=== PATIENT | female | born 1965 | race Caucasian/White ===

== ENCOUNTER 2021-07-18 10:26 | Outpatient (REF) | payer MEDICAID, SELFPAY ==
--- NOTE | 2021-07-18 16:27 | MHC.AU.ANR ---
Adult Audiological Evaluation Date of Visit: 07/18/21 Reason for Appointment: Patient was seen today for a hearing aid evaluation. Medical clearance for binaural hearing aid use was provided by ENT Dr. Blanco from 06/28/21. However, audiogram provided was from 12/27/20 and patient stated that they did not do a repeat audiogram at her most recent visit. Per [facility] requirements for obtaining hearing aids, both medical clearance and audiogram must be within six months of obtaining hearing aids. A pure tone check was performed today. Patient reports a significant history of middle-ear problems throughout her life, but has decided against surgical intervention. She has perforated eardrums bilaterally. She also noted that Dr. Blanco recommended she obtain swim plugs through our clinic. She notes that she recently had a cyst removed from her left ear. Does patient feel they have a hearing loss?: Yes If Yes, Which Ear?: Both Ears When Was Hearing Difficulty First Noticed?: many years ago Has hearing been tested previously?: Yes Previous Hearing Test Results: [facility] of [facility], 12/27/2020- Mild sensorineural hearing loss in the right ear. Severe to profound mixed hearing loss in the left ear. Hearing Handicap Inventory: HHIE SCORE: 40 Based on HHIE score, patient has: Severe perceived hearing handicap Ear History: Family History of Hearing Loss?: Yes: Father Ear Infections in Childhood: Both ears, very frequently Medical History: Medical History: Headache, Heart Problems, Seizure Disorder, Stroke Allergies: Ativan, contrast dye, codeine, demerac, penicillin Medication List: Aspirin, losartan, metoprolol, topiramate, atorvastatin, phenytoin Otoscopy: Right Ear: Perforation visualized. Clear canal Left Ear: Clear canal Tympanometry: Tympanometry performed due to: Right Ear: Not performed at today's visit Left Ear: Not performed at today's visit Hearing Evaluation: Transducer(s) Used: Insert Earphones, Bone Conduction Method: Conventional Audiometry Stimuli Used: Pure Tones Right Ear: Description of Hearing: Moderate mixed hearing loss from 250-500 Hz, rising to mild sensorineural hearing loss from 9668-2152 Hz, sloping to moderate mixed loss at 4000 Hz, and rising to a mild loss at 8000 Hz. Left Ear: Description of Hearing: Severe mixed hearing loss from 250-1000 Hz, rising to moderately-severe mixed hearing loss from 4254-9186 Hz. Speech Recognition Threshold (SRT): Method Used: Not performed at today's visit. Word Discrimination: Method: Not performed at today's visit. Comparison: Compared to the most recent evaluation: In the right ear, thresholds have worsened by 30 dBHL at 250 Hz, 20 dBHL at 500 Hz, 10 dBHL at 4000 Hz, and 15 dBHL at 8000 Hz. In the left ear, thresholds have improved by 25+ dBHL at 250 Hz, 30 dBHL at 500 Hz, 10 dBHL at 1000 and 8000 Hz, 15 dBHL at 2000 Hz, and 20 dBHL at 4000 Hz. Recommendations: Audiological re-evaluation in one year. See Hearing Aid Evaluation report for more information. Earmolds impressions were taken for swim plugs and hearing aid earmolds. Hearing aids ordered today. Diagnosis: Primary Diagnosis: H90.6 Mixed Hearing Loss, Bilateral Services Performed: Services Performed: Pure Tone- Air & Bone (CPT 34177) Signature: Provider: Cristina Allen, CCC-A
--- NOTE | 2021-07-18 16:28 | MHC.AU.HAS ---
Hearing Aid Evaluation Date of Visit: 07/18/21 Historical Information: Description of Hearing: Mild to moderate mixed hearing loss in the right ear. Moderately-severe to severe mixed hearing loss in the left ear. Current personal amplification information, if applicable: None Summary: Patient was referred to our clinic for a hearing aid evaluation by ENT Dr. Blanco, who provided medical clearance for binaural amplification from 06/28/2021. Hearing test provided was from 12/27/20, so a pure tone check was completed today in order to be in compliance with [facility] requirements for obtaining hearing aids. Discussed hearing aid options. Patient is concerned about the size of the hearing aids. Advised the LORRAINE aids are the most inconspicuous and she was agreeable to that. Would prefer rechargeable hearing aids, as she feels she is forgetful and needs a consistent routine. Recommend custom LORRAINE molds based on degree of hearing loss. Patient states that Dr. Blanco also recommended swim plugs to be used in the shower due to perforations in both TMs. Took two sets of earmold impressions, or swim plugs and for custom LORRAINE molds. Hearing Aid Prescription: Based on the individual?s shared listening needs, communication environments, dexterity, desire for connectivity, and personal preferences, the following prescription for amplification has been made: Right ear: Horn Player: [employer] Model: Audeo P70-R Battery Size: Rechargeable Color: P1- Sand beige Conversion Developer: Size 0 M Type of Mold: cShell Left ear: Left ear prescription to be same as Right Hearing Aid above: Horn Player: Phonak Model: Audeo P70-R Battery Size: Rechargeable Color: P1 - Sand beige Conversion Developer: Size 0 P Type of Mold: cShell Plan of Care: Requesting an order for swim plugs from Dr. Blanco and swim plugs will be ordered when that is received. Hearing aids were ordered today. Primary Diagnosis: H90.6 Mixed Hearing Loss, Bilateral Signature: Provider: Cristina Allen, [facility]
== END 2021-07-18 10:27 | disposition home or self-care (01) ==
LOC: HO.HAP 10:26
PROVIDERS: Visit Provider Internal Medicine
DX: Z46.1 Encounter for fitting and adjustment of hearing aid (principal); H90.6 Mixed conductive and sensorineural hearing loss, bilateral
CPT/HCPCS: 92553; 92591; V5275

== ENCOUNTER 2021-07-29 15:04 | Outpatient (REF) | payer MEDICAID, SELFPAY ==
--- NOTE | 2021-07-29 16:32 | MHC.AU.HFA ---
Hearing Instrument Fitting- Adult- Binaural Date of Visit: 07/29/21 Hearing Instruments Dispensed: Right Ear: Tack Welder: Phonak Model: Audeo P70-R Serial Number: [id number] Repair Warranty: 10/22/2024 Loss and Damage Warranty: 10/22/2024 Battery Size: Rechargeable Color: P1- Sand beige Gear Straightener: Size 0 M Type of Mold: cShell, SN: [id number], Warranty: 10/24/2021 Type of Wax Guard: Cerustop Left Ear: Tack Welder: Phonak Model: Audeo P70-R Serial Number: [id number] Repair Warranty: 10/22/2024 Loss and Damage Warranty: 10/22/2024 Battery Size: Rechargeable Color: P1 - Sand beige Gear Straightener: Size 0 P Type of Mold: cShell, SN: [id number], Warranty: 10/24/2021 Type of Wax Guard: Cerustop Summary of Fitting: Patient was seen today for a binaural hearing aid fitting. She is a new hearing aid user. Hearing aids were programmed to her hearing loss and feedback measures were run. Real-ear verification was run at 100% gain and adjustments were made to better match targets. She noted that the hearing aids were overall too loud, so turned down to 80% gain and turned on occlusion compensation to medium. She reported improved sound quality and comfortable fit. Counseled on proper care and use, including insertion/removal, cleaning, health insurance specialist use, wax guard changing, etc. Programmed hearing aids to the Qraved parveen on her phone and reviewed use. She is not interested in streaming capabilities at this time. Recommendations: Hearing Instrument maintenance in 6 months, or sooner if needed. Please call our clinic with any questions or concerns. Hearing aid follow-up will be scheduled once swim molds are in. Signature: Provider: Cristina Allen, BECKY-A
== END 2021-07-29 15:05 | disposition home or self-care (01) ==
LOC: HO.HAP 15:04
PROVIDERS: Visit Provider Internal Medicine
DX: Z46.1 Encounter for fitting and adjustment of hearing aid (principal); H90.6 Mixed conductive and sensorineural hearing loss, bilateral
CPT/HCPCS: V5011; V5020; V5160; V5261; V5264

== ENCOUNTER 2021-08-26 13:19 | Outpatient (REF) | payer MEDICAID, SELFPAY ==
--- NOTE | 2021-09-01 11:36 | MHC.AU.HFU ---
Hearing Instrument Follow-Up- Binaural Date of Visit: 08/26/21 Right Ear: Material Mover: Phonak Model: Audeo P70-R Serial Number: [id number] Repair Warranty: 10/22/2024 Type of Mold: cShell SN: [id number] Warranty: 10/24/2021 Type of Wax Guard: Cerustop Left Ear: Material Mover: Phonak Model: Audeo P70-R Serial Number: [id number] Repair Warranty: 10/22/2024 Type of Mold: cShell SN: [id number] Warranty: 10/24/2021 Type of Wax Guard: Cerustop Follow-Up Summary: Patient arrived for hearing aid follow-up and to fit her new swim molds. The left swim mold fits well, but the right swim mold is too loose. A new impression was taken of the right ear and sent to [facility] along with the right swim mold. Patient reports the cShells on both hearing aids have been sliding out and causing feedback. She also feels she is ready to turn the target gain up to 100% (it was at 80%). New impressions were taken of both ears and sent to [email or web address] along with the cShells. For now, medium power domes were placed on power receivers. Hearing aid acoustics were reprogrammed to reflect the domes. When the cShells return, we will need to set the hearing aids back to their last settings (from before today's appointment), then turn the gain up to 100%. Recommendations: Patient will be contacted when the remade swim mold arrives and the remade cShells (whichever comes first, will call patient as it comes in). Diagnosis Code(s): Primary Diagnosis: H90.6 Mixed Hearing Loss, Bilateral Signature: Provider: Cristina Flynn, [facility]
== END 2021-08-26 13:20 | disposition home or self-care (01) ==
LOC: HO.HAP 13:19
PROVIDERS: Visit Provider Internal Medicine
DX: Z46.1 Encounter for fitting and adjustment of hearing aid (principal); H90.6 Mixed conductive and sensorineural hearing loss, bilateral
CPT/HCPCS: V5264

== ENCOUNTER 2021-09-26 14:23 | Outpatient (REF) | payer MEDICAID, SELFPAY ==
--- NOTE | 2021-09-28 08:01 | MHC.AU.HFU ---
Hearing Instrument Follow-Up- Binaural Date of Visit: 09/26/21 Right Ear: Cans Vacuum Tester: Phonak Model: Audeo P70-R Serial Number: [id number] Repair Warranty: 10/22/2024 Loss and Damage Warranty: 10/22/2024 Type of Mold: cShell, SN: [id number], Warranty: 10/24/2021 Type of Wax Guard: Cerustop Left Ear: Cans Vacuum Tester: Phonak Model: Audeo P70-R Serial Number: [id number] Repair Warranty: 10/22/2024 Loss and Damage Warranty: 10/22/2024 Type of Mold: cShell, SN: [id number], Warranty: 10/24/2021 Type of Wax Guard: Cerustop Follow-Up Summary: Patient arrived to pick out hand the remade cShells and the remade right swim mold. The cShells were placed back on her hearing aids. Programming was reverted to the last setting where the cShells were in use, and target gain raised to 100%. Feedback manager club re-run. Patient was pleased with the sound of the instruments. So far, she feels the cShells feel better. She will let us know if problems persist as she has been wearing them for longer. Patient reports that she has tried using the left swim mold at home, and she is getting water in her ear. The right remake also still feels loose. New impressions taken bilaterally and will be sent to [employer] for remake. Patient also requested the color changed to beige. Recommendations: Patient will be contacted when the remade swim molds are in. Diagnosis Code(s): Primary Diagnosis: H90.6 Mixed Hearing Loss, Bilateral Signature: Provider: Cristina Flynn, [facility]
== END 2021-09-26 14:24 | disposition home or self-care (01) ==
LOC: HO.HAP 14:23
PROVIDERS: Visit Provider Otolaryngology
DX: Z46.1 Encounter for fitting and adjustment of hearing aid (principal); H90.6 Mixed conductive and sensorineural hearing loss, bilateral
CPT/HCPCS: V5275

== ENCOUNTER 2021-10-28 13:44 | Outpatient (REF) | payer MEDICAID, SELFPAY | END 2021-10-28 13:45 | disposition home or self-care (01) | LOC: HO.HAP 13:44 | PROVIDERS: Visit Provider Otolaryngology | DX: Z46.1 Encounter for fitting and adjustment of hearing aid (principal); H90.6 Mixed conductive and sensorineural hearing loss, bilateral | CPT/HCPCS: V5264 ==

== ENCOUNTER 2024-03-07 10:27 | Outpatient (REF) | payer MEDICAID, SELFPAY ==
--- NOTE | 2024-03-07 15:26 | MHC.AU.HA3 ---
Hearing Instrument Follow-Up- Binaural Date of Visit: 03/07/24 Flare Man Used: Right Ear: Make, Model, Color, Serial Number: [id number] Executive Creative Director Repair Warranty: 10/22/2024 Executive Creative Director Loss and Damage Warranty: 10/22/2024 [facility] Service Plan: Battery Size: Rechargeable Group Leader/Slim Tube: Size 0 M Earmold/Dome/CShell/SlimTip:cShell SN: [id number] Warranty: 10/24/2021 Type of Wax Guard: Cerustop Dispensed By: Date of Fitting: Left Ear: Make, Model, Color, Serial Number: [id number] Executive Creative Director Repair Warranty: 10/22/2024 Executive Creative Director Loss and Damage Warranty: 10/22/2024 [facility] Service Plan: Battery Size: Rechargeable Group Leader/Slim Tube: Size 0 P Earmold/Dome/CShell/SlimTip: cShell SN: [id number] Warranty: 10/24/2021 Type of Wax Guard: Cerustop Dispensed By: Date of Fitting: Follow-Up Summary: Patient dropped off hearing aids, was scheduled for [facility] appt but provider was out sick. Note says need them to shut off at office so I can control them. they keep ringing too loud . Contacted patient for more info- says she uses the parveen to turn them down because she finds them too loud, but they go back to our settings every morning. Recalls being told she can come in to have them shut off from our end so she is in total control of them. Also states they ring. Notes she had a sudden hearing loss recently, is seeing ENT in [place] for further testing. Explained to patient that she will never be able to make permanent changes to settings from parveen, recommend coming in for appt so we can make changes to her baseline, rerun feedback food and beverage operations manager, and reprogram aids to newest audiogram. She did not feel she needed an appointment for these issues. Explained further, offered to decrease gain slightly while aids are here but that we can only make appropriate changes with her in office, with copy of newest audiogram. Patient agreeable, says she has one more test scheduled with ENT then will return. Aids cleaned, wax guards changed, mics cleaned, firmware updated, and decreased gain 2 clicks. Brought aids to front, pt will pickup same day. Recommendations: Recommendations (Other): Call office to schedule adjustment after upcoming hearing test. Diagnosis Code(s): Primary Diagnosis: H90.6 Mixed Hearing Loss, Bilateral Signature: Student/Clinical Fellow: I have reviewed/agreed with student/fellow documentation: Provider: Cristina Bosch, CCC-A
== END 2024-03-07 10:28 | disposition home or self-care (01) ==
LOC: HO.HAP 10:27
PROVIDERS: Visit Provider Internal Medicine
DX: Z46.1 Encounter for fitting and adjustment of hearing aid (principal); H90.6 Mixed conductive and sensorineural hearing loss, bilateral
CPT/HCPCS: 92593; 99499

== ENCOUNTER 2024-07-02 16:21 | Outpatient (REF) | payer MEDICAID, SELFPAY ==
--- NOTE | 2024-07-03 08:20 | MHC.AU.HA3 ---
Hearing Instrument Follow-Up- Binaural Date of Visit: 07/02/24 Right Ear: Anthony, Model, Color, Serial Number: [id number] Data Recovery Planner Repair Warranty: 10/22/2024 Data Recovery Planner Loss and Damage Warranty: 10/22/2024 [facility] Service Plan: 07/29/22 Battery Size: Rechargeable Optometric Technician/Slim Tube: Size 0 M Earmold/Dome/CShell/SlimTip:cShell SN: [id number] Warranty: 10/24/2021 Type of Wax Guard: Cerustop Dispensed By: [facility] Date of Fittin07/29/21 Left Ear: Anthony, Model, Color, Serial Number: [id number] Data Recovery Planner Repair Warranty: 10/22/2024 Data Recovery Planner Loss and Damage Warranty: 10/22/2024 [facility] Service Plan: 07/29/22 Battery Size: Rechargeable Optometric Technician/Slim Tube: Size 0 P Earmold/Dome/CShell/SlimTip: cShell SN: [id number] Warranty: 10/24/2021 Type of Wax Guard: Cerustop Dispensed By: [facility] Date of Fittin07/29/21 Follow-Up Summary: Luann is seen for hearing aid adjustment. She reports infrequent hearing aid use due to being bothered by all the excess noise and unable to hear what she wants to hear. Reports that when she has used the hearing aids recently they only last a couple hours. She has a recent audiogram from ENT in [place]. She reports Dr. Blanco recommended new swim plugs as the ones she has had never fit well. Recommended sending her hearing aids for repair due to battery drain. Will adjust hearing aids to most recent audiogram upon return. Took impressions for new swim plugs without incidence Au. She would like beige. She will contact Dr. Blanco to have order sent over for swim plugs. Impressions stored in hold drawer. Recommendations: Recommendations: Patient will be contacted when materials have arrived. Diagnosis Code(s): Primary Diagnosis: H90.A21 SNHL, Unilateral Right Ear, W/Restricted Contralateral Hearing Secondary Diagnosis: H90.A32 Mixed HL, Unilateral, Left Ear, W/Restricted Contralateral Signature: Provider: Fanny Granado, [facility]
== END 2024-07-02 16:22 | disposition home or self-care (01) ==
LOC: HO.HAP 16:21
PROVIDERS: Visit Provider Otolaryngology
DX: Z46.1 Encounter for fitting and adjustment of hearing aid (principal); H90.A21 Sensorineural hearing loss, unilateral, right ear, with restricted hearing on the contralateral side; H90.A32 Mixed conductive and sensorineural hearing loss, unilateral, left ear with restricted hearing on the contralateral side
CPT/HCPCS: 92593; V5275

== ENCOUNTER 2024-07-23 16:25 | Outpatient (REF) | payer MEDICAID, SELFPAY ==
--- OUTSIDE RECORDS SUMMARY | 2024-07-23 18:19 | XMS_ITS | Data Portability ---
Author Organization [place] - [facility], Allergy Address [address] [facility] 100 [place] [address] Care Team Providers Care General Machine Operator Name Role Phone HALIMA RODRIGUEZ Primary Care Provider [phone] Assessment Encounter Date Assessment Date Assessment LastModified by Organization Details LastModified Time 02/15/2024 02/15/2024 We discussed tanika t the patient has experienced a sudden right-sided sensorineural hearing loss. I explained that this is idiopathic but thought to be due to a virally-mediated inflammatory phenomenon. We discussed that our recommended treatment plan typically includes a two week high dose oral prednisone taper and a series of 3 intratympanic dexamethasone injections. Side effects of oral steroids were discussed, including GI upset, irritability, and sleep disturbance. We discussed the rare complication of aseptic necrosis of the hip. An information sheet regarding oral steroids was given to the patient for their review at home. A prescription for prednisone 60 mg per day followed by a five-day taper was sent to the pharmacy. She declined the injection on the right side. She also declined removal of left sided cerumen. In the meantime I will order MRI scan of the brain and internal auditory canals to rule out retrocochlear pathology as the cause of the sudden hearing loss. Repeat hearing testing in 6 weeks and followup with Dr Hamlin was offered [email or web address] Not available 02/15/2024 15:30:55 06/19/2024 06/19/2024 The left-sided deep retraction pocket is free of infection or inflammation today. Today I spoke with the patient and her coordinator mining products about the deep retraction pocket and how it is prone to accumulation of squamous debris and infection. Today we discussed the option of left-sided tympano-ossiculop lasty with mastoidectomy to excise the retraction pocket and reconstruct the ossicular chain. We discussed that this would be done via a postauricular approach. We discussed preoperative and perioperative expectations. We discussed the risks, benefits, and complications associated with this surgery including the risks of bleeding, infection, persistent tympanic membrane perforation, temporary or permanent facial nerve paralysis or paresis, cerebrospinal fluid leak, encephalocele, temporary or permanent tinnitus, temporary or permanent balance disturbance. We also discussed the possibility that the hearing may be significantly reduced postoperatively, which will most likely be temporary but may also be permanent. We discussed the possibility that the patient will require a second stage surgery in 8-10 months to rule out recurrent cholesteatoma as well as to perform ossicular chain reconstruction if needed. We discussed the fact that if there is a significant recurrence of cholesteatoma at the second stage surgery that further reoperations may be required. After full discussion, the patient would like to proceed with surgery. I have provided patient with the contact information for my certified surgical tech/first assistant. We will begin the scheduling process and see the patient back at the time of surgery. Patient will require medical clearance from their primary care provider preoperatively. [email or web address] Not available 06/19/2024 09:48:40 Plan of Treatment Reminders Order Date Submit Date Provider Last Modified By Organization Details Last Modified Time Details Appointments SURGERY 150 2024 01:30P M VICKIE HAMLIN MD Not available Not available Not available Post Op 2024 09:45A M RANDY PIMENTEL PA-C Not available Not available Not available Establish ed 10 2024 03:30P M VICKIE HAMLIN MD Not available Not available Not available Lab None recorded. Referral None recorded. Procedures None recorded. Surgeries tympanopl asty with mastoidec luigi, with intact or reconstru cted canal wall, with ossicular chain reconstru ction (SURG) 2024 025 [email or web address] Not available 06/19/2024 10:16:42 Imaging MRI, brain + internal auditory canal, w/wo contrast - MRI, BRAIN + INTERNAL AUDITORY CANAL, W/WO CONTRAST 2024 025 [facility] ([facility]), [address] [facility] [address], [place], [address], 02/26/2024 10:04:32 Medication Orders tobramyci n 0.3 %-dexamet hasone 0.1 % eye drops,brandy pension 2024 025 [facility], [address] [place] [address], [id number], 06/19/2024 09:11:49 prednison e 10 mg tablet 2024 025 [facility], [address] [place] [address], [id number], 04/10/2024 14:41:03 Patient TargetsNo targets recorded. Patient InstructionsNo instructions recorded. Reason for Referral None Reported. Results Created Date Observation Date Name Description Value Unit Range Abnormal Flag Note LastModifiedBy Organization Detail LastModifiedTime 02/17/19 audio gram No observ ation record ed. BARCODE Not Available 2024 09:32:46 02/25/19 25 02/23/2024 MRI, brain + brain stem, w/wo contr ast [facility] Access ion Number : [id number] Patiisabela t Name: Luann Childs Record Number : [id number] Date of : 1965 Date of Exam: 2024 Referr ing Physic lita: Fawad Orozco [facility] [address] [place] [address] Exam: MR Brain (C-/C+ ) CPT 25704 Room Descri ption: Glorieta GE Pion 3T MR Brain (C-/C+ ) CPT 83769 INDICA TION / CLINIC AL QUESTI ON: H90.6 - Mixed conduc tive and sensor ineura l hearin g loss, bilate ral, Clinic al Indica tion: Asymme tric sensor ineura l hearin g loss TECHNI QUE: Multip lanar, multis equenc e MRI of the brain was perfor med with and withou t intrav enous contra st. 18 mL Dotare m intrav enous contra st was admini stered . COMPAR SHEEBA: None. FINDIN GS: IAC: There is no mass or abnorm al enhanc ement in the architect internship al audito ry canals or cerebe llopon song angles . Course and calibe r of the 7th and 8th crania l nerves is normal bilate rally. Fluid signal is preser nereyda in the inner ear struct ures bilate rally. Brains tem demons trates normal signal . BRAIN and EXTRA- AXIAL SPACES : Modera te patchy T2 prolon gation is seen in the perive ntricu lar, deep, and subcor tical white matter , a nonspe cific findin g most common ly reflec ting chroni c small vessel diseas e in this demogr aphic. Otherw ise no signif icant abnorm ality of the visual ized portio ns of the brain and extra- axial spaces . EXTRAC RANIAL SOFT TISSUE S: Left mastoi d effusi on is presen t. Conten ts are mildly T1 hyperi ntense , sugges ting protei naceou s materi al, with no percep tible superi mposed enhanc ement. Nasoph arynge al contou r is symmet sahara. Remain ing visual ized portio ns of the extrac ranial soft tissue s are unrema rkable . BONES: Visual ized marrow signal is preser nereyda. IMPRES FLAVIO: 1. No retroc ochlea r abnorm ality to explai n the patien t?s sympto ms. 2. Left mastoi d effusi on. Electr onical ly Signed By: Grant Peng MD [facility] ([facility]) [address] [facility], [place], [address], 02/27/2024 15:11:28 04/11/19 25 audio gram No observ ation record ed. BARCODE Not Available 2024 10:48:47 Result Notes None recorded. Problems Name Problem SNOMED Code Status Onset Date Resolution Date Notes Provider Name and Address Organization Details Recorded Time Disorder of left Eustachi an tube 17169722297 79180 Active 2020 Other specifie d disorder s of Eustachi an tube, left ear; Note: Date Diagnose d: 12/28/19 21 3:50 PM (H69.82) Not Available [facility] 4 02:20:15 Marginal perforat ion of tympanic membrane 94812511 Active 2021 Other marginal perforat ions of tympanic membrane , right ear; Note: Date Diagnose d: 09/18/2019 6:51 PM (H72.2X1 ) ; Start Date : 09/18/19 Other marginal perforat ions of tympanic membrane , bilatera l; Note: Date Diagnose d: 05/20/2021 8:12 AM (H72.2X3 ) Not Available [facility] 4 02:19:51 Partial loss of ear ossicles 56529695 Active 2021 Partial loss of ear ossicles , left ear; Note: Date Diagnose d: 05/20/2021 8:10 AM (H74.322 ) Not Available [facility] 4 02:19:34 Otorrhea of left ear [id number] 11399 Completed 201909/14/2023 Otorrhea , left ear; Note: Date Diagnose d: 0 9:14 AM (H92.12) VICKIE HAMLIN MD [address] [place] [address], [facility] [place], [address] [facility] 5 15:05:07 Sensorin eural hearing loss in right ear 85826474587 100 Active 2020 Sensorin eural hearing loss, unilater al, right ear, with restrict ed hearing on the contrala teral side; Note: Date Diagnose d: 12/28/19 21 2:32 PM (H90.A21 ) Not Available [facility] 4 02:19:58 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; Note: Date Diagnose d: 2 10:42 AM (H74.12) Not Available [facility] 4 02:19:33 Mixed conducti ve and sensorin eural hearing loss of left ear 62116445879 107 Active 2020 Mixed conducti ve and sensorin eural hearing loss, unilater al, left ear with restrict ed hearing on the contrala teral side; Note: Date Diagnose d: 12/28/19 21 2:32 PM (H90.A32 ) Not Available [facility] 4 02:18:54 Mixed conducti ve and sensorin eural hearing loss, vivien l 641284457 Active [address] FLOWER [address] [place] [address],[place] [address], [place], [address] , [facility] - [facility] 5 15:08:11 Adhesive middle ear disease 7353612 Active 2024 VICKIE HAMLIN MD [address] [place] [address],[place] [address], [place], [address] , [facility] - [facility] 5 20:32:38 Otorrhea of left ear 31353705544 53672 Active 2024 Otorrhea , left ear; Note: Date Diagnose d: 0 9:14 AM (H92.12) VICKIE HAMLIN MD [address] [place] [address],[place] [address], [place], [address] , [facility] 5 15:05:07 Problem Notes None recorded. Procedures Surgical History Date Name Laterality Status Provider Name and Address Organization Details Recorded Time 5 Air & Speech Audio with Tymps - 76720, 49862 & 02490 completed JOSE FLOWER [address] [place] [address], [place], [address], [facility] 04/10/2024 14:31:41 5 Debridement of Ear canal left completed VICKIE HAMLIN MD [address] [place] [address], [address], [facility] 04/10/2024 15:15:22 5 Comp Audio with Tymps - 10067 & 89711 completed JOSE FLOWER [address] [place] [address], [address], [facility] 02/15/2024 15:07:13 Imaging Results None recorded. Procedure Notes None recorded. Medical Equipment None Reported. Allergies Allergen ID Allergen Name Allergen Category Reaction Reaction Severity Criticality Documentation Date Start Date Code Code System Note Provider Name and Address Organization Details Recorded Time [facility] Not available Not available 06/26/2023 60663 1 RxNorm React ion: unkno wn, unspe cifie d;; Not Available [facility] 4 00:48:24 60449 Ativan medicatio n other Not available Not available 06/26/2023 83819 9 RxNorm React ion: unkno wn, unspe cifie d;; Not Available [facility] 4 00:48:24 52668 Iodinated contrast media (substanc e) medicatio n other Not available Not available 06/26/2023 17089 2003 SNOMED React ion: unkno wn, unspe cifie d;; Not Available [facility] 4 00:48:33 85745 penicilli n V potassium medicatio n other Not available Not available 06/26/2023 96735 5 RxNorm React ion: unkno wn, unspe cifie d;; Not Available [facility] 4 00:48:39 51540 codeine sulfate medicatio n other Not available Not available 06/26/2023 79560 RxNorm React ion: unkno wn, unspe cifie d;; Not Available [facility] 4 00:48:44 Medications Name Sig Start Date Stop Date Status Note LastModified by Organization Details LastModified Time losartan 50 mg tablet TAKE 1 TABLET BY MOUTH ONCE DAILY active Not Available Not Available No t Available atorvasta tin 80 mg tablet TAKE 1 TABLET BY MOUTH AT BEDTIME active Not Available Not Available No t Available prednison e 10 mg tablet Take 6 tabs once a day for 9 days, then take 5 tabs on day 10, 4 tabs on day 11, 3 tabs on day 12, 2 tabs on day 13, and 1 tab on day 14 04/10 completed Not Available Not Available Not Available meloxicam 15 mg tablet TAKE 1 TABLET BY MOUTH ONCE DAILY NEEDED WITH FOOD FOR BACK PAIN 06/19 completed Not Available Not Available Not Available topiramat e 25 mg tablet TAKE 1 TABLET BY MOUTH ONCE DAILY . APPOINTM ENT REQUIRED FOR FUTURE REFILLS active Not Available Not Available No t Available aspirin 81 mg tablet,de layed release TAKE 1 TABLET BY MOUTH ONCE DAILY active Not Available Not Available No t Available amitripty line 10 mg tablet TAKE 1 TO 2 TABLETS BY MOUTH EVERY DAY AT BEDTIME NEEDED FOR MIGRAINE HEADACHE active Not Available Not Available No t Available nystatin 100,000 unit/gram topical cream APPLY CREAM TOPICALL Y THREE TIMES DAILY 04/10 completed Not Available Not Available Not Available losartan 25 mg tablet 04/10 completed Medicati on ID: [id number] D uration Value: 90 Brand Name: losartan Send Method: E-Prescr ibed Sub s Allowed: subs OK Speci al Instruct ion: TAKE 1 TABLET BY MOUTH ONCE DAILY Me dication GenericN cayetano: losartan Not Available Not Available Not Available omeprazol e 20 mg capsule,d elayed release 04/10 completed Medicati on ID: [id number] D uration Value: 30 Brand Name: omeprazo le Send Method: E-Prescr ibed Sub s Allowed: subs OK Speci al Instruct ion: TAKE 1 CAPSULE BY MOUTH ONCE DAILY 30 MINUTES BEFORE BREAKFAS T FOR 30 DAYS Med icationG enericNa me: omeprazo le Not Available Not Available Not Available gabapenti n 100 mg capsule TAKE 1 CAPSULE BY MOUTH THREE TIMES DAILY FOR 7 DAYS active Not Available Not Available No t Available metoprolo l succinate ER 25 mg tablet,ex tended release 24 hr TAKE 1 TABLET BY MOUTH ONCE DAILY 04/10 completed Not Available Not Available Not Available ergocalci ferol (vitamin D2) 1,250 mcg (50,000 unit) capsule TAKE 1 CAPSULE BY MOUTH ONCE A WEEK DIRECTED active Not Available Not Available No t Available tobramyci n 0.3 %-dexamet hasone 0.1 % eye drops,brandy pension INSTILL 4 DROPS INTO AFFECTED EAR(S) BY OTIC ROUTE 2 TIMES PER DAY FOR 10 DAYS 06/19 completed Not Available Not Available Not Available ProAir HFA 90 mcg/actua tion aerosol inhaler 06/19 completed Medicati on ID: [id number] D uration Value: 17 Brand Name: ProAir HFA Send Method: E-Prescr ibed Sub s Allowed: subs OK Speci al Instruct ion: INHALE 2 PUFFS BY MOUTH EVERY 4 TO 6 HOURS NEEDED FOR COUGH AND WHE EZING Me dication GenericN cayetano: ProAir HFA Not Available Not Available Not Available Vitals Date Recorded Body height Body weight Provider Name and Address Organization Details Last Updated DateTime 06/19/2024 149.86 cm 99810.92 g Cuca Delatorre [place] - [facility] 06/19/2024 09:45:34 Social History None recorded. Functional Status None recorded. Mental Status None recorded. Family History Nothing Reported. Medical History Condition Response Allergies/Hayfever N Heart Problems Y Anxiety Y Tonsil Infections N Emphysema N Migraines Y Thyroid Problems N Glaucoma N Depression N COPD N Developmental Delay N Nasal or Sinus Problems N Anemia N Immune System Disorder N Anesthesia Complications N Heart Attack (DC) Y Other Skin Condition N Diabetes N Rhinitis N Bleeding Disorder N Food Allergy N Arthritis Y Hearing Loss Y Hyperlipidemia N Cancer N Stroke N Dementia N Nasal polyps N Asthma N High Cholesterol N Sleep Disorder N GERD/Reflux N Liver Disease N Headaches Y Fibromyalgia N Hypertension N Speech Delay N Kidney Disease N Gynecological HistoryNo gynecological history recorded. Obstetrics History GPAL:G 0 P 0 0 0 0 Past Encounters Encounter ID Performer Location Encounter Start Date Encounter Closed Date Diagnosis/Indication Diagnosis SNOMED-CT Code Diagnosis ICD10 Code Diagnosis Note [id number] FAWAD OROZCO MD [facility] [address] [address] 02/15/2024 13:54:12 02/15/2024 15:34:16 Mixed conductive and sensorineural hearing loss, bilateral 309845936 H90.6 Audiologic al evaluation results: Right ear: Mild sloping to profound mixed hearing loss with excellent word recognitio n. Left ear: Severe sloping to profound mixed hearing loss with excellent word recognitio n. Tympanomet ry: Right Ear:Type A Left Ear:Type B [id number] VICKIE HAMLIN MD [facility] [address] [address] 04/10/2024 13:56:07 04/10/2024 15:18:14 Adhesive middle ear disease 7774522 H74.12 Otorrhea of left ear 288 6352420 288615 H92.12 The left retraction pocket was impacted with wet squamous debris, which was carefully debrided today under the binocular microscope . There is wet squamous debris here as well as signs of chronic inflammati on. Recommend 2 weeks of topical TobraDex drops to be used twice a day. Dry ear precaution s should continue. I will see her back in 2 months for reevaluati on to assess for signs of cholesteat aletha. Patient is extremely fearful of having her ear cleaned and as such, we may want to consider proceeding with surgery on this ear to normalize the position of the drum and remove the retraction pocket and proceed with ossicular chain reconstruc tion to help with the hearing. Mixed cond uctive and sensorineural hearing loss of left ear 1539021814 9107 H90.A32 Audiologic al evaluation results: Right ear:Mild sloping to profound sensorineu ral hearing loss with excellent word recognitio n.Left ear:Modera tely-sever e hearing he aring. slo ping to a mild slopi ng to a moderate s loping to moderately severe slo ping to severe slo ping to profound f lat high frequency low frequency mid frequency cookie bite wolf curve to profound mixed hearing loss. Tympanomet ry:Right Ear:Type ALeft Ear:Type BPatient continues to demonstrat e a new right sided high-frequ ency sensorineu ral hearing loss related to her recent sudden hearing loss.Patie nt given copy of audiogram to bring back to her audiologis t to ensure her hearing aids are adjusted to match her current level of hearing loss. Sensorineu ral hearing loss in right ear [id number] 9100 H90.A21 [id number] VICKIE AHMLIN MD [facility] [address] [address] 06/19/2024 09:03:41 06/19/2024 09:47:18 Adhesive middle ear disease 2082356 H74.12 Mixed cond uctive and sensorineural hearing loss of left ear 1597217771 9107 H90.A32 Sensorineu ral hearing loss in right ear 9113937214 9100 H90.A21 Partial lo ss of ear ossicles 71375953 H74.322 Health Concerns Section Related Observation LastModified by Organization Detai ls LastModified Time None Recorded Concern Status LastModified by Organization Details LastModified Time None Recorded Advance Directives Directive None Recorded Payers Insurance Date Sequence Insurance Name Policy Number Policy Monge Covered Member ID Monge Member ID Guarantor Name 06/16/2024 1 [place] [facility] Luann Childs [id number] Luann Childs Notes Date Note Type Note Provider Name and Address Organization Details Recorded Time 02/15/2024 text/html hearing loss RIG HT sidedassociated with tinnitus and headacheonset 02/03/24has hearing aids but not using them - appreciates echoseen at [employer] and advised to use claritinno prior acute hearing loss event PV 06/28/21 Francis - reviewed operative findings from [facility] 05/20/21 - not interested in surgery, given medical clearance for B HAEAD: large area of dimeric tympanic membrane in the posterior superior quadrant with a pinpoint perforation along the margin. No signs of retractionor cholesteatoma.: Deep retraction pocket of the entire posterior half of the tympanic membrane which is adherent to the promontory with a marginal perf in the post/infquadrant. The long process of the incus absent. The stapes superstructure is missing in the drum is adherent to the footplate. Retraction extends underneath thescutum, but there does not appear to be debris collection within the epitympanum FAWAD OROZCO MD [address] [place] [address], [place], [address], [place] - [facility] 02/15/2024 15:31:15 04/10/2024 text/html Patient with his tory of left eustachian tube dysfunction resulting in LEFT deep retraction pocket. She underwent left ear examination under anesthesia back in early 2021 and the retraction pocket was noted to be limited to the middle ear, without signs of cholesteatoma formation. There was erosion of the incus with myringostapediopexy. CT showed very sclerotic left mastoid. I did recommend continued observation to assess for formation of cholesteatoma.Patient experienced a sudden RIGHT sided sensorineural hearing loss. Patient given high-dose oral steroid regimen. Patient declined intratympanic injections. MRI scan performed which showed no signs of retrocochlear pathology. Left mastoid effusion noted. Patient returns today for audiometric testing to assess response to prednisone. Patient does have binaural amplification dispensed through [facility] audiology. VICKIE HAMLIN MD [address] [place] [address] [address], [place], [address], [facility] - [facility] 04/10/2024 15:17:17 06/19/2024 text/html Patient with his tory of left eustachian tube dysfunction resulting in LEFT deep retraction pocket. She underwent left ear examination under anesthesia back in early 2021 and the retraction pocket was noted to be limited to the middle ear, without signs of cholesteatoma formation. There was erosion of the incus with myringostapediopexy. CT showed very sclerotic left mastoid. I did recommend continued observation to assess for formation of cholesteatoma, though we have recently discussed proceeding with surgery to favian the retraction pocket in light of her extreme fear of having her ear cleaned manually. Last seen 2 months ago at which point she had purulent discharge arising from the LEFT retraction Patient experienced a sudden RIGHT sided sensorineural hearing loss. Patient given high-dose oral steroid regimen. Patient declined intratympanic injections. MRI scan performed which showed no signs of retrocochlear pathology. Patient does have binaural amplification dispensed through [facility], and she was given a copy of her audiogram at her last visit to bring to her investigator operator to have her hearing aid adjusted appropriately. VICKIE HAMLIN MD [address] [facility] [address], [place], [address], [facility] - [facility] 06/19/2024 09:49:20 OBGyn Episode No OBEpisode recorded.
--- NOTE | 2024-07-24 08:08 | MHC.AU.HA3 ---
Hearing Instrument Follow-Up- Binaural Date of Visit: 07/23/24 Right Ear: Anthony, Model, Color, Serial Number: [id number] Phonshagufta Díazeo P-70R Sand Beige Biological Photographer Repair Warranty: 10/22/2024 Biological Photographer Loss and Damage Warranty: 10/22/2024 [facility] Service Plan: exp Battery Size: Rechargeable Lead Technologist In Cytogenetics/Slim Tube: Size 0 M Earmold/Dome/CShell/SlimTip:cShell SN: [id number] Warranty: 10/24/2021 Type of Wax Guard: Cerustop Left Ear: Anthony, Model, Color, Serial Number: [id number] Phonshagufta Díazeo P-70R Sand Beige Biological Photographer Repair Warranty: 10/22/2024 Biological Photographer Loss and Damage Warranty: 10/22/2024 [facility] Service Plan: exp Battery Size: Rechargeable Lead Technologist In Cytogenetics/Slim Tube: Size 0 P Earmold/Dome/CShell/SlimTip: cShell SN: [id number] Warranty: 10/24/2021 Type of Wax Guard: Cerustop Follow-Up Summary: Dispensed repaired hearing aids. Programmed to most recent audiogram from ENT. Ran feedback. Counseled on adjustment to amplification and importance of consistent wear as Luann as reported intermittent hearing aid use in the past. Impressions are still in hold drawer waiting for order from Dr. Blanco for swim plugs. Luann noted upcoming surgery with Dr. Blanco, advised hearing aid adjustment will be needed if surgery leads to any changes in hearing thresholds and to contact us for that as needed. Recommendations: Recommendations: Hearing instrument follow-up or maintenance as needed. Diagnosis Code(s): Primary Diagnosis: H90.A32 Mixed HL, Unilateral, Left Ear, W/Restricted Contralateral Secondary Diagnosis: H90.A21 SNHL, Unilateral Right Ear, W/Restricted Contralateral Hearing Signature: Provider: Fanny Granado, [facility]
== END 2024-07-23 16:26 | disposition home or self-care (01) ==
LOC: HO.HAP 16:25
PROVIDERS: Visit Provider Otolaryngology
DX: Z46.1 Encounter for fitting and adjustment of hearing aid (principal); H90.A32 Mixed conductive and sensorineural hearing loss, unilateral, left ear with restricted hearing on the contralateral side; H90.A21 Sensorineural hearing loss, unilateral, right ear, with restricted hearing on the contralateral side
CPT/HCPCS: 92593

== ENCOUNTER 2024-08-19 15:31 | Outpatient (REF) | payer MEDICAID, SELFPAY ==
--- OUTSIDE RECORDS SUMMARY | 2024-08-19 15:57 | XMS_ITS | Data Portability ---
Author Organization [place] - [facility], Allergy Address [address] [facility] 100 [place] [address] Care Team Providers Care Apprenticeship Training Representative Name Role Phone HALIMA RODRIGUEZ Primary Care Provider Assessment Encounter Date Assessment Date Assessment LastModified [...] and followup with Dr Hamlin was offered [email or web address] Not available 02/15/2024 15:30:55 06/19/2024 06/19/2024 The left-sided deep retraction pocket is free of infection or inflammation today. Today I spoke with the patient and her second shift supervisor about the deep retraction pocket and how it is prone to accumulation of squamous debris and infection. 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 We will begin the scheduling process and see the patient back at the time of surgery. Patient will require medical clearance from their primary care provider preoperatively. [email or web address] Not available 06/19/2024 09:48:40 08/08/2024 08/08/2024 58-year-old ramandeep mack presents postoperatively following tympanoplasty and ossiculoplasty with excision cholesteatoma. Post regular incision healing normally. Gelfoam partially removed from the EAC. Healing normally. Use 4 drops twice daily for 2 weeks of ofloxacin. Continues to have significant discomfort which is interfering with sleep. Provided 5 tablets of oxycodone 5 mg for sleep. She should use Tylenol in between doses for pain management. Follow-up as scheduled with Dr. Hamlin. [email or web address] Not available 08/08/2024 10:13:07 Plan of Treatment Reminders Order Date Submit Date Provider Last Modified By Organization Details Last Modified Time Details Appointments Establish ed 10 2024 03:30P M VICKIE HAMLIN MD Not available Not available Not available Lab None recorded. Referral None recorded. Procedures None recorded. Surgeries tympanopl asty with mastoidec luigi, with intact or reconstru cted canal wall, with ossicular chain reconstru ction (SURG) 2024 025 [email or web address] Not available 06/19/2024 10:16:42 Imaging MRI, brain + internal auditory canal, w/wo contrast - MRI, BRAIN + INTERNAL AUDITORY CANAL, W/WO CONTRAST 2024 025 [facility] ([facility]), [address], [place], [address], 02/26/2024 10:04:32 Medication Orders ofloxacin 0.3 % ear drops 2024 025 [facility], [address] [place] [address], [id number], 08/08/2024 10:13:58 tobramyci n 0.3 %-dexamet hasone 0.1 % eye drops,brandy pension 2024 025 [facility], [address] [place] [address], [address], 06/19/2024 09:11:49 prednison e 10 mg tablet 2024 025 [facility], [address] [place] [address], [place], [address], 04/10/2024 14:41:03 Patient TargetsNo targets recorded. Patient InstructionsNo instructions recorded. Reason for Referral None Reported. Results Created Date Observation Date Name Description Value Unit Range Abnormal Flag Note LastModifiedBy Organization Detail LastModifiedTime 02/17/19 audio gram No observ ation record ed. BARCODE Not Available 2024 09:32:46 02/25/19 25 02/23/2024 MRI, brain + brain stem, w/wo contr ast [facility] Access ion Number : [id number] Sandip agudelo Name: Luann Childs Record Number : [id number] Date of : 1965 Date of Exam: 2024 Referr ing Physic lita: Fawad Orozco [facility] [address] [place] [address] Exam: MR Brain (C-/C+ ) CPT 45591 Room Descri ption: [facility] Pion 3T MR Brain (C-/C+ ) CPT 28805 INDICA TION / CLINIC AL QUESTI ON: [...] or abnorm al enhanc ement in the photography intern al audito ry canals or cerebe llopon [...] percep tible superi mposed enhanc ement. Nasoph chintan al contou r is symmet sahara. Remain ing visual ized portio ns of the extrac ranial soft tissue s are unrema rkable . BONES: Visual ized marrow signal is preser nereyda. IMPRES FLAVIO: 1. No retroc ochlea r abnorm ality to explai n the patien t?s sympto ms. 2. Left mastoi d effusi on. Electr onical ly Signed By: Grant Peng MD [facility] ([facility]) [address], [place], [address], 02/27/2024 15:11:28 04/11/19 25 audio gram No observ ation record ed. BARCODE Not Available 2024 10:48:47 Result Notes Documentation Provider Name and Address Organization Details Recorded Time Mri, Brain + Brain Stem, W/wo Contrast : [facility] Accession Number: [id number] Patient Name: Luann Childs Date of : 1965 Date of Exam: 02-23-2024 Referring Physician: Fawad Orozco Ear N[facility] 100 [facility] 100 [place] [address] Exam: MR Brain (C-/C+) CPT 61977 [facility] 42445 INDICATION / CLINICAL QUESTION: H90.6 - Mixed conductive and sensorineural hearing loss, bilateral, Clinical Indication: Asymmetric sensorineural hearing loss TECHNIQUE: Multiplanar, multisequence MRI of the brain was performed with and without intravenous contrast. 18 mL Dotarem intravenous contrast was administered. COMPARISON: None. FINDINGS: IAC: There is no mass or abnormal enhancement in the internal auditory canals or cerebellopontine angles. Course and caliber of the 7th and 8th cranial nerves is normal bilaterally. Fluid signal is preserved in the inner ear structures bilaterally. Brainstem demonstrates normal signal. BRAIN and EXTRA-AXIAL SPACES: Moderate patchy T2 prolongation is seen in the periventricular, deep, and subcortical white matter, a nonspecific finding most commonly reflecting chronic small vessel disease in this demographic. Otherwise no significant abnormality of the visualized portions of the brain and extra-axial spaces. EXTRACRANIAL SOFT TISSUES: Left mastoid effusion is present. Contents are mildly T1 hyperintense, suggesting proteinaceous material, with no perceptible superimposed enhancement. Nasopharyngeal contour is symmetric. Remaining visualized portions of the extracranial soft tissues are unremarkable. BONES: Visualized marrow signal is preserved. IMPRESSION: 1. No retrocochlear abnormality to explain the patient?s symptoms. 2. Left mastoid effusion. Electronically Signed By: Marie OROZCO MD [address] [facility],[place] [address], [place], [address], [facility] - [facility] 02/27/2024 08:50:45 Problems Name Problem SNOMED Code Status Onset Date Resolution Date Notes Provider Name and Address Organization Details Recorded Time Disorder of left Eustachi an tube 02776982439 87726 Active 2020 Other specifie d disorder s of Eustachi an tube, left ear; Note: Date Diagnose d: 12/28/19 21 3:50 PM (H69.82) Not Available [facility] 4 02:20:15 Marginal perforat ion of tympanic membrane 29089154 Active 2021 Other marginal perforat ions of tympanic membrane , right ear; Note: Date Diagnose d: 09/18/2019 6:51 PM (H72.2X1 ) ; Start Date : 09/18/19 Other marginal perforat ions of tympanic membrane , bilatera l; Note: Date Diagnose d: 05/20/2021 8:12 AM (H72.2X3 ) Not Available [facility] 4 02:19:51 Partial loss of ear ossicles 93919036 Active 2021 Partial loss of ear ossicles , left ear; Note: Date Diagnose d: 05/20/2021 8:10 AM (H74.322 ) Not Available [facility] 4 02:19:34 Otorrhea of left ear [id number] 94854 Completed 201909/14/2023 Otorrhea , left ear; Note: Date Diagnose d: 0 9:14 AM (H92.12) VICKIE HAMLIN MD [address] [place] [address], [place], [address] 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; Note: Date Diagnose d: 2 10:42 AM (H74.12) Not Available [facility] 4 02:19:33 Mixed conducti ve and sensorin eural hearing loss of left ear 67135041384 107 Active 2020 Mixed conducti ve and sensorin eural hearing loss, unilater al, left ear with restrict ed hearing on the contrala teral side; Note: Date Diagnose d: 12/28/19 21 2:32 PM (H90.A32 ) Not Available [facility] 4 02:18:54 Mixed conducti ve and sensorin eural hearing loss, bilatera l 689902845 Active 2024 JOSE FLOWER [address], [place], [address] , [facility] - [facility] 5 15:08:11 Adhesive middle ear disease 0511201 Active 2024 VICKIE HAMLIN MD [address] [facility],[place] [address], [place], [address] , [facility] - [facility] 5 20:32:38 Otorrhea of left ear 85815700454 84101 Active 2024 Otorrhea , left ear; Note: Date Diagnose d: 0 9:14 AM (H92.12) VICKIE HAMLIN MD [address] [facility],[place] [address], [place], [address] , 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 - [facility] 5 14:19:24 Problem Notes None recorded. Procedures Surgical History Date Name Laterality Status Provider Name and Address Organization Details Recorded Time 08/02/19 25 TYMPANOPLASTY WITH MASTOIDECTOMY, WITH INTACT OR RECONSTRUCTED CANAL WALL, WITH OSSICULAR CHAIN RECONSTRUCTION (SURG) completed Karan Lynn [place] - [facility] 08/05/2024 10:07:48 04/10/19 25 Air & Speech Audio with Tymps - 93566, 76003 & 13562 completed JOSE FLOWER [address] [facility],[place] [address], [place], [address], [facility] - [facility] 04/10/2024 14:31:41 04/10/19 25 Debridement of Ear canal left completed VICKIE HAMLIN MD [address] [facility],[address], [address], [facility] - [facility] 04/10/2024 15:15:22 02/14/19 25 Comp Audio with Tymps - 87159 & 89609 completed JOSE FLOWER [address] [facility],[address], [address], [facility] 02/15/2024 15:07:13 Imaging Results None recorded. Procedure Notes None recorded. Medical Equipment None Reported. Allergies Allergen ID Allergen Name Allergen Category Reaction Reaction Severity Criticality Documentation Date Start Date Code Code System Note Provider Name and Address Organization Details Recorded Time 18809 Demerol medicatio n other Not available Not available 06/26/2023 11900 1 RxNorm React ion: unkno wn, unspe cifie d;; Not Available [facility] 4 00:48:24 14426 Ativan medicatio n other Not available Not available 06/26/202363818 9 RxNorm React ion: unkno wn, unspe cifie d;; Not Available [facility] 4 00:48:24 10192 Iodinated contrast media (substanc e) medicatio n other Not available Not available 06/26/2023 69907 2003 SNOMED React ion: unkno wn, unspe cifie d;; Not Available [facility] 4 00:48:33 76607 penicilli n V potassium medicatio n other Not available Not available 06/26/2023 84870 5 RxNorm React ion: unkno wn, unspe cifie d;; Not Available [facility] 4 00:48:39 84160 codeine sulfate medicatio n other Not available Not available 06/26/2023 13267 RxNorm React ion: unkno wn, unspe cifie d;; Not Available [facility] 4 00:48:44 Medications Name Sig Start Date [...] DAILY NEEDED WITH FOOD FOR BACK PAIN active Not Available Not Available No t Available topiramat e 25 mg tablet TAKE 1 TABLET BY MOUTH ONCE DAILY . APPOINTM ENT REQUIRED FOR FUTURE REFILLS active Not Available Not Available No t Available phenytoin sodium extended 100 mg capsule TAKE 2 CAPSULES BY MOUTH ONCE DAILY IN THE MORNING AND 3 AT BEDTIME active Not Available Not Available No t Available aspirin 81 mg tablet,de layed release TAKE 1 TABLET BY MOUTH ONCE DAILY active Not Available Not Available No t Available ofloxacin 0.3 % ear drops INSTILL 4 DROPS INTO AFFECTED EAR(S) TWICE DAILY FOR 2 WEEKS active Not Available Not Available No t Available amitripty line 10 mg tablet TAKE 1 TO 2 TABLETS BY MOUTH EVERY DAY AT BEDTIME NEEDED FOR MIGRAINE HEADACHE active Not Available Not Available No t Available nystatin 100,000 unit/gram topical cream APPLY CREAM TOPICALL Y THREE TIMES DAILY active Not Available Not Available No t Available losartan 25 mg tablet 04/10 completed Medicati on ID: [id number] D uration Value: 90 Brand Name: losartan Send Method: E-Prescr ibed Sub s Allowed: subs OK Speci al Instruct ion: TAKE 1 TABLET BY MOUTH ONCE DAILY Me dication GenericN cayetano: losartan Not Available Not Available Not Available omeprazol e 20 mg capsule,d elayed release 04/10 completed Medicati on ID: [id number] D uration Value: 30 Brand Name: omeprazo le Send Method: E-Prescr ibed Sub s Allowed: subs OK Speci al Instruct ion: TAKE 1 CAPSULE BY MOUTH ONCE DAILY 30 MINUTES BEFORE BREAKFAS T FOR 30 DAYS [facility]: omeprazo le Not Available Not Available Not Available gabapenti n 100 mg capsule TAKE 1 CAPSULE BY MOUTH THREE TIMES DAILY FOR 7 DAYS active Not Available Not Available No t Available metoprolo l succinate ER 25 mg tablet,ex tended release 24 hr 1 mg every 24 hours by oral route. active Not Available Not Available No t Available ergocalci ferol (vitamin D2) 1,250 mcg (50,000 unit) capsule TAKE 1 CAPSULE BY MOUTH ONCE A WEEK DIRECTED active Not Available Not Available No t Available albuterol sulfate 2 mg tablet TAKE 1 TABLET BY MOUTH AT BEDTIME active Not Available Not Available No t Available tobramyci n 0.3 %-dexamet hasone 0.1 % eye drops,brandy pension INSTILL 4 DROPS INTO AFFECTED EAR(S) BY OTIC ROUTE 2 TIMES PER DAY FOR 10 DAYS 06/19 completed Not Available Not Available Not Available oxycodone 5 mg tablet TAKE 1 TABLET BY MOUTH EVERY 4 TO 6 HOURS NEEDED active Not Available Not Available No t Available albuterol active Not Available Not Ludivina ilable Not Available ProAir HFA 90 mcg/actua tion aerosol inhaler 06/19 completed Medicati on ID: [id number] D uration Value: 17 Brand Name: ProAir HFA Send Method: E-Prescr ibed Sub s Allowed: subs OK Speci al Instruct ion: INHALE 2 PUFFS BY MOUTH EVERY 4 TO 6 HOURS NEEDED FOR COUGH AND WHE EZING Me dication GenericN cayetano: ProAir HFA Not Available Not Available Not Available phenytoin 100 mg/4 mL oral syringe (FOR ORAL USE ONLY) 400 mg 4 times a day by oral route. active Not Available Not Available No t Available Vitals Date Recorded Body height Body weight Provider Name and Address Organization Details Last Updated DateTime 06/19/2024 149.86 cm 37196.92 g Cuca Delatorre [place] - [facility] 06/19/2024 09:45:34 Date Recorded Body height Body mass index (BMI) Body weight Provider Name and Address Organization Details Last Updated DateTime 08/08/2024 149.86 cm 39.2 kg/m2 89925.92 g Bryanna West [place] - [facility] 08/08/2024 09:52:11 Social History Question Answer Notes LastModified by Organizat ion Details LastModified Time Tobacco Smoking Status Former Smoker Bryanna casiano [place] - [facility] 08/08/2024 09:52:30 Do You Have Any Pets? Yes [email or web address] Information not available 08/08/2024 At What Age Did You Start Smoking Tobacco? 20 [email or web address] Information not available 08/08/2024 Are You Passively Exposed To Smoke? No [email or web address] Information not available 08/08/2024 Are There Any Smokers In Your House? No [email or web address] Information not available 08/08/2024 Sex: Unknown Functional Status Question Answer Note LastModified by Organizat ion Details LastModified Time Do you use any illicit or recreational drugs? No Information not available 08/08/2024 Do you or have you ever used any other forms of tobacco or nicotine? No [email or web address] Information not available 08/08/2024 Mental Status None recorded. Family History Nothing Reported. Medical History Condition Response Allergies/Hayfever N Heart Problems Y Anxiety Y Tonsil Infections N Emphysema N Migraines Y Thyroid Problems N Glaucoma N Depression N COPD Y Developmental Delay N Nasal or Sinus Problems N Anemia N Immune System Disorder N Anesthesia Complications N Heart Attack (NC) Y Other Skin Condition N Diabetes N [...] SNOMED-CT Code Diagnosis ICD10 Code Diagnosis Note [id number] FAWAD OROZCO MD [facility] [address] [address] 02/15/2024 13:54:12 02/15/2024 15:34:16 Mixed conductive and sensorineural hearing loss, bilateral 509395547 H90.6 Audiologic al evaluation results: Right ear: Mild sloping to profound mixed hearing loss with excellent word recognitio n. Left ear: Severe sloping to profound mixed hearing loss with excellent word recognitio n. Tympanomet ry: Right Ear:Type A Left Ear:Type B [id number] VICKIE HAMLIN MD [facility] [address] [address] 04/10/2024 13:56:07 04/10/2024 15:18:14 Adhesive middle ear disease 6270316 H74.12 Otorrhea of left ear 823 3842330 534933 H92.12 The left retraction pocket was impacted [...] and sensorineural hearing loss of left ear 9503373481 9107 H90.A32 Audiologic al evaluation results: Right ear:Mild sloping to profound sensorineu ral hearing loss with excellent word recognitio n.Left ear:Modera tely-sever e to profound mixed hearing loss. Tympanomet ry:Right [...] Sensorineu ral hearing loss in right ear 9050209094 9100 H90.A21 [id number] VICKIE HAMLIN MD [facility] [address] [address] 06/19/2024 09:03:41 06/19/2024 09:47:18 Adhesive middle ear disease 8569683 H74.12 Mixed cond uctive and sensorineural hearing loss of left ear 8127716826 9107 H90.A32 Sensorineu ral hearing loss in right ear 7574988270 9100 H90.A21 Partial lo ss of ear ossicles 41970527 H74.322 [id number] JOSE MARCUM PA-C [facility] 100 [place] [address] 08/08/2024 09:49:52 08/08/2024 10:07:36 Adhesive middle ear disease 1940569 H74.12 Cholesteat aletha of recessus epitympanicus of left middle ear 0434243339 677615 H71.02 Partial lo ss of ear ossicles 93828524 H74.322 Health Concerns Section Related Observation LastModified by Organization Detai ls LastModified Time None Recorded Concern Status LastModified by Organization Details LastModified Time None Recorded Advance Directives Directive None Recorded Payers Insurance Date Sequence Insurance Name Policy Number Policy Monge Covered Member ID Monge Member ID Guarantor Name 08/12/2024 1 [place] [facility] Luann Childs [id number] Luann Childs Notes Date Note Type Note Provider Name and Address Organization Details Recorded Time 02/15/2024 text/html hearing loss RIG HT sidedassociated with tinnitus and headacheonset 02/03/24has hearing aids but not using them - appreciates echoseen at [facility] and advised to use claritinno prior acute hearing loss event PV 06/28/21 Francis - reviewed operative findings from [facility] 05/20/21 - not interested in surgery, given [...] collection within the epitympanum FAWAD OROZCO MD [address] [place] [address], [place], [address], [facility] - [facility] 02/15/2024 15:31:15 04/10/2024 text/html Patient with his [...] Patient does have binaural amplification dispensed through [facility] audiology. 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 VICKIE HAMLIN MD 100 [facility], [place], [address], [facility] 06/19/2024 09:49:20 08/08/2024 text/html 58-year-old femlula mack presents for evaluation following left tympanoplasty and ossiculoplasty for cholesteatoma with Dr. Hamlin. She has been struggling with postoperative discomfort. Cannot take ibuprofen but has been using Tylenol and oxycodone sparingly. Following postoperative instruction. FAWAD OROZCO MD [address] [place] [address], [place], [address], [facility] - [facility] 08/12/2024 09:38:25 OBGyn Episode No OBEpisode recorded.
== END 2024-08-19 15:32 | disposition home or self-care (01) ==
LOC: HO.HAP 15:31
PROVIDERS: Visit Provider Otolaryngology
DX: Z46.1 Encounter for fitting and adjustment of hearing aid (principal); H90.6 Mixed conductive and sensorineural hearing loss, bilateral
CPT/HCPCS: V5264